=== PATIENT | female | born 1975 | race Caucasian/White ===

== ENCOUNTER 2018-07-23 11:58 | Observation (INO) ==
--- NOTE | 2018-07-23 08:45 | Anesthesia Evaluation PreOp ---
Date of Encounter: 07/23/18 Time of Encounter: 13:02 - Past History Planned Operation: Left Endo-CTR Cardiac History: Denies any Significant Hx Pulmonary History: Denies Any Significant HX, Snore [employer] History: Denies Any Significant HX Other Medical History: Denies Any Significant HX Anesthesia History: No Prior Anesthetic Complications, Past Anesthesia Test: Negative (07/23/2018) Alcohol Use: occasionally Drug use: none Medications and Allergies Ibuprofen 800 mg PO TID PRN #15 tablet 07/31/17 [Rx] Allergy/AdvReac Type Severity Reaction Status Date / Time rofecoxib [From Vioxx] AdvReac Swelling Verified 02/08/17 21:01 of Lip/Tongue/Throat Sulfa (Sulfonamide AdvReac Swelling Verified 07/23/18 12:43 Antibiotics) of Lip/Tongue/Throat - Meds/Allergy Pre-op Review Medications Reviewed: Yes Allergies Reviewed: Yes Beta Blockers on Current Med List: No Anesthesia Results - Labs Laboratory Tests 05/18/16 05/18/16 08:20 08:20 WBC 5.3 Hgb 13.1 Hct 39.7 Plt Count 286 Sodium 140 Potassium 3.2 L BUN 10 Creatinine 0.91 Anesthesia Exam O2 Sat Height 1.63 m Weight 88.904 kg O2 Sat by Pulse Oximetry 96 Vital Signs Temp Pulse Resp BP Pulse Ox 98.0 F 77 18 132/98 96 07/23/18 12:45 07/23/18 12:45 07/23/18 12:45 07/23/18 12:45 07/23/18 12:45 Height: 5'4'' Weight: 196 lbs NPO (# of Hours): 8 Pain Scale: 0 Pain Scale Used: Numeric (1 - 10) - HEENT Pupil (Motor): EOMI Mallampati: III Teeth: Normal Oral Opening: Greater than 3 - [employer] LOC: Oriented [employer] Motor: Normal RUE, Normal LUE, Normal RLE, Normal LLE, Normal Face [employer] Sensory: Normal: RUE, RLE, LLE, Face, Deficit: LUE (numbness/tingling) - Cardiac Rhythm: Regular Murmur: None - Pulmonary Breath Sounds: bilateral Clear Respiratory Effort: Symmetrical Anesthesia Assess/Plan ASA Score: 2 Level of consciousness: Cooperative, Oriented, Tranquil Anesthetic Plan: Regional Nerve Block (Clayton block) Monitoring Plan: Standard Monitors
[2018-07-23] MEDS ORDERED: Ringers Solution, Lactated 1,000 ML IVC SCH (12:45)
--- NOTE | 2018-07-23 12:47 | History & Physical Report ---
Date of Encounter: 07/23/18 Time of Encounter: 12:47 24 Hour HP Update - Instructions Instructions: If the History and Physical is less than 30 days old and was completed prior to A.M. admission and or procedure and has NOT been updated on calendar day of procedure please complete this update prior to performing procedure. - Update Patient reports changes in Medical Condition: No Changes in examination, assessment, or condition: No Changes in Medication: No Preop tests/diagnostics Reviewed: Yes Surgery Remains Indicated: Yes Consent for Planned Operative Procedure(s) Verified: Yes - Pre-Operative Checklist Preoperative Checklist Indicated: Yes Prophylactic Antibiotic Ordered: No Is VTE Prophylaxis Indicated?: Yes
--- NOTE | 2018-07-23 12:49 | Discharge Summary ---
Outpatient Proc Discharge Plan - Plan Additional Instructions: Remove dressings in 5 days, gently wash with soap and water and cover with a band-Aid Elevate hand. Do hand exercises Use ice for 1 hour 3 times a day for the next 2 days. No heavy lifting. No sports or gym activities follow-up in 2 weeks with Edwige Stewart PA-C Home Medications: Ibuprofen 800 mg PO TID PRN #15 tablet 07/31/17 [Rx]
[2018-07-23] MEDS ORDERED: *HR* Midazolam HCl 2 MG/2 ML VIAL ONE (12:53)
[2018-07-23] MEDS ORDERED: *HR* FentaNYL (PF) 100 MCG/2 ML VIAL ONE (12:53)
[2018-07-23] MEDS ORDERED: *HR* Propofol 200 MG/20 ML VIAL IVP ONE (12:54)
[2018-07-23] MEDS ORDERED: Lidocaine -MPF 0.5% 50 ML VIAL ONE (13:00)
[2018-07-23] MEDS ORDERED: Nitroglycerin 0.4 MG TAB.SUBL SL ONE (15:31)
[2018-07-23] MEDS: Nitroglycerin 0.4 MG TAB.SUBL SL PRN ×2 (15:36→15:42)
[2018-07-23] MEDS ORDERED: *HR* LORazepam 1 MG TABLET PO ONE (15:45)
[2018-07-23] MEDS ORDERED: *HR* Morphine 2 MG/ML SYRINGE IVP PRN (15:58)
--- NOTE | 2018-07-23 17:41 | Anesthesia Evaluation Post Op ---
Date of Encounter: 07/23/18 Time of Encounter: 17:46 - Vital Signs Vital Signs: Vital Signs/O2 Sat, Most Current Temp Pulse Resp BP Pulse Ox 97.9 F 76 16 121/86 94 07/23/18 14:19 07/23/18 17:00 07/23/18 17:00 07/23/18 17:00 07/23/18 17:00 - Lungs Lungs: Clear Ascult./Percussion - Airway Airway: Non-obstructed - Cardiovascular Regular Rate - Mental Status Mental Status: Alert & Oriented, Answers Appropriately - Pain Pain Scale: 0 (left wrist) Pain Scale used: Numeric (1 - 10) - Nausea Vomiting Nausea Vomiting: Not Present - Hydration Hydration: Tolerates oral liquids, Able to void Notes: Patient with c/o new onset chest fluttering/pressure in right sternal region shortly after having left endo-CTR under Clayton block with sedation. Stat ECG showed sinus rhythm, low QRS voltage in precordial leads, nonspecific T-wave abnormality. Vital signs were stable. Chest pressure became chest pain 10/10. Patient given sublingual NTG x 2 with no improvement in pain. Stat troponin ordered. Patient given ativan 0.5 mg PO and morphine 2 mg IV. Patient reported pain/pressure improved to 5/10. Patient reports family history on father's side as significant for cardiac disease with several members having myocardial infarcts in their 40's. Chest pressure still present. Troponin <0.03 ng/ml. Hospitalist contacted. Patient to be admitted and observed overnight. Dr Urbina informed. 07/23/18 17:18 - Discharge PostOp Status: Transfer Patient to floor
[2018-07-23] MEDS ORDERED: Nitroglycerin 0.4 MG TAB.SUBL SL PRN (21:39)
[2018-07-23] MEDS: Ondansetron 4 MG/2 ML VIAL IVP PRN (22:35)
[2018-07-23] MEDS ORDERED: Naloxone 0.4 MG/ML INJ IVP PRN (23:06)
[2018-07-23] MEDS ORDERED: 0.9 % Sodium Chloride 1,000 ML IVC ONE (23:09)
[2018-07-23] MEDS ORDERED: *HR* HYDROcodone/Acet 5/325 mg TABLET PO PRN (23:10)
[2018-07-23] MEDS ORDERED: Acetaminophen 325 MG TABLET PO PRN (23:10)
[2018-07-23] MEDS: *HR* OxyCODONE Immed Rel 5 MG TABLET PO PRN (23:45)
[2018-07-24 01:56] LABS: Hematocrit 33.9 % (35.3-44.9); Hemoglobin 11.3 g/dL (11.5-15.4); Mean Corpuscular HGB Conc 33.3 g/dL (31.6-35.5); Mean Corpuscular Hemoglobin 27.7 pg (28.0-33.3); Mean Corpuscular Volume 83.1 fL (83.0-100.0); Mean Platelet Volume 9.4 fL (9.4-12.4); Platelet Count 260 K/mcL (140-400); Red Blood Count 4.08 M/mcL (3.82-4.97); Red Cell Distribution Width 12.4 % (11.5-14.5)
[2018-07-24 02:16] LABS: Alanine Aminotransferase 62 Units/L (7-52); Albumin 3.5 g/dL (3.5-5.7); Albumin/Globulin Ratio 1.6 (1.1-2.2); Alkaline Phosphatase 81 Units/L (34-104); Aspartate Amino Transferase 65 Units/L (13-39); BUN/Creatinine Ratio 10 (6-26); Bilirubin,Total 0.7 mg/dL (0.3-1.0); Blood Urea Nitrogen 7 mg/dL (6-20); Calcium 8.2 mg/dL (8.6-10.3); Carbon Dioxide 27 mEq/L (23-29); Chloride 106 mEq/L (98-107); Globulin 2.2 g/dL (2.4-3.5); Glucose 106 mg/dL (70-105); Osmolality,Calculated 278 (280-300); Potassium 3.6 mEq/L (3.5-5.1); Sodium 135 mEq/L (136-145); Total Protein 5.7 g/dL (6.4-8.9); eGFR For Non-African Americans > 60 (> 60)
--- NOTE | 2018-07-24 02:31 | Internal Med History&Physical ---
Date of Encounter: 07/23/18 Time of Encounter: 22:20 Internal Medicine - H&P: HPI Chief complaint: Chest pressure Admitted From: Direct Admit Plans for Post Hospital Care: Home History of present illness: Ms. Carrion is a 42 year old female Patient presented to the hospital as a direct admit from outpatient anesthesia a fter she had undergone a left carpal tunnel release procedure earlier in the day. She says upon awakening she developed chest pressure approximately 10 minutes after waking up that was sudden onset and associated with diaphoresis. She denies shortness of breath and chest pain however she does have tenderness with palpation on the left side of her chest. She has chronic left shoulder pain as well which she has seen specialists for including recently that resulted in her having a carpal tunnel procedure done. She has never had symptoms like this before, denies cardiac history. Initial lab work demonstrates a CBC is within normal limits, and a CMP that is also within normal limits. Patient's initial troponins have been negative. D- dimer was not elevated at 289. Upon arrival to the hospital she stated that her chest pressure was about an 8 out of 10. She denies radiation but that it is difficult to assess due to her chronic left shoulder pain. She denied shortness of breath, diarrhea and constipation. She has had nausea and vomiting, the chest pressure but no abdominal pain. Her wrist and hand is still numb from the surgery, which she says the surgeon told her would be normal. She also has a long history of vomiting after meals for an unknown reason. She indicates that she has had extensive workup for this in the past but no conclusive cause has been found yet. is at bedside. Notable family history includes her mother that had colon cancer and father who has history of heart disease. Past Med Surg Social Fam HX - Past Medical History Medical history: non-contributory Additional medical history: heart murmur Psychiatric history: anxiety, depression - Past Surgical History Surgical History: cholecystectomy Additional surgical history: ltc - Social History Smoking Status: Never smoker Smokeless Tobacco Status: No Alcohol use: none Drug use: none - Family History Mother Living Status: Cause of : Cancer, mets Hx Family Cancer: Yes Hx Family GI Disorders: Yes Internal Medicine - H&P: Meds Ibuprofen 800 mg PO TID PRN #15 tablet 07/31/17 [Rx] Allergy/AdvReac Type Severity Reaction Status Date / Time rofecoxib [From Vioxx] AdvReac Swelling Verified 02/08/17 21:01 of Lip/Tongue/Throat Sulfa (Sulfonamide AdvReac Swelling Verified 07/23/18 12:43 Antibiotics) of Lip/Tongue/Throat All Systems PM: A 10-system review of systems was performed and is negative for pertinent findings except as documented above in the HPI. - Constitutional Vitals: Temp Pulse Resp BP Pulse Ox 97.8 F 71 17 124/88 95 07/24/18 00:12 07/24/18 00:12 07/24/18 00:12 07/24/18 00:12 07/24/18 00:12 General appearance: Present: cooperative, A&O X 3, pleasant, no acute distress, answers questions appropriately Exam: - - Head Head exam: Present: normal inspection - Eye Eye exam: Present: EOMI, normal appearance - Neck Neck exam general surgery: Absent: tenderness - Respiratory Respiratory exam: Present: chest wall tenderness, CTAB. Absent: rales, respiratory distress, rhonchi, wheezes Additional comments: Chest wall tenderness left anterior with palpation - Cardiovascular Cardiovascular exam: Present: RRR. Absent: diastolic murmur, systolic murmur - GI/Abdominal GI/Abdominal exam: Present: normal bowel sounds, soft. Absent: tenderness - Extremities Exam Extremities exam: Present: warm, radial pulses palpable and symmetrical. Absent: calf tenderness, pedal edema, tenderness - Neurological Exam Neurological exam: Present: no focal deficits, strengths equal and symetr throughout. Absent: motor sensory deficit, facial droop, speech deficit Additional comments: Numbness of left hand. Left hand in a wrap status post carpal tunnel release surgery - Skin Skin exam: Present: dry, normal color, warm Internal Med - H&P Results - Labs CBC & Chem 7: 07/24/18 01:45 07/24/18 01:45 Labs: Short CBC 07/24/18 Range/Units 01:45 WBC 4.8 (4.3-11.1) K/mcL Hgb 11.3 L (11.5-15.4) g/dL Hct 33.9 L (35.3-44.9) % Plt Count 260 (140-400) K/mcL BMP 07/24/18 01:45 Sodium 135 L Potassium 3.6 Chloride 106 Carbon Dioxide 27 BUN 7 Creatinine 0.70 Glucose 106 H Calcium 8.2 L Cardiac Enzymes 07/23/18 07/23/18 Range/Units 16:01 22:53 Troponin I < 0.03 < 0.03 (< 0.04) ng/mL Liver Function 07/24/18 Range/Units 01:45 Total Bilirubin 0.7 (0.3-1.0) mg/dL AST 65 H (13-39) Units/L ALT 62 H (7-52) Units/L Alkaline Phosphatase 81 (34-104) Units/L Albumin 3.5 (3.5-5.7) g/dL - Assessment and plan (1) History of carpal tunnel surgery of left wrist Current Visit: Yes Status: Acute Assessment and plan: Performed earlier in the day 07/23/2018. Management as per orthopedic surgery (2) Chest pressure Current Visit: Yes Status: Acute Assessment and plan: Initial troponins negative, EKG shows no ischemic changes. D-dimer not elevated. Now resolved with oxycodone. Could be related to patient's chronic shoulder pain. No associated shortness of breath but did have pain with palpation. Obtain chest x-ray in the morning to rule out bony abnormality Continue to trend troponins Pain management as needed (3) Nausea and vomiting Current Visit: Yes Status: Acute Assessment and plan: Improved with when necessary Zofran. Patient has apparently long history of GI disorders and has had nausea and vomiting for many years. Continue when necessary Zofran Qualifiers: Vomiting type: unspecified Vomiting Intractability: non-intractable Qu alified Code(s): R11.2 - Nausea with vomiting, unspecified (4) DVT prophylaxis Current Visit: Yes Status: Acute Assessment and plan: SCDs - Time Spent With Patient Total time spent is greater than 50% in coordination of care (as documented) at patient's floor/unit and/or counseling patient: Greater than 35 minutes
[2018-07-24] MEDS: *HR* OxyCODONE Immed Rel 5 MG TABLET PO PRN ×2 (09:47→17:08)
[2018-07-24] MEDS: Ondansetron 4 MG/2 ML VIAL IVP PRN (11:46)
--- NOTE | 2018-07-24 15:49 | Internal Med Progress Note ---
Hospitalist Progress Note - Encounter Date of Encounter: 07/24/18 Time of Encounter: 15:46 - Subjective Interval History: I have seen and evaluated the patient at bedside. Patient reports that her chest discomfort have resolved but she reports feeling nauseated and has had 2 episodes of non-bilious, non-bloody vomiting. denies headache. - Exam Vitals: Temp Pulse Resp BP Pulse Ox 98.6 F 64 16 96/60 96 07/24/18 11:04 07/24/18 11:04 07/24/18 11:04 07/24/18 11:04 07/24/18 11:04 Exam: Vitals: Reviewed General: Alert and oriented x4. In mild distress due to nausea and vomiting Skin: Normal color, no rash, no lesions. HEENT: EOM, pupils equal, round and reactive. Cardiovascular: RRR, normal S1 & S2, no rubs, murmurs or gallops. No JVD. Pulse regular. Lungs: CTA b/l, no wheezes or crackles. Abdomen: Obese, Soft, non-tender, no rigidity. Extremities: mild edema of the right hand. Neurological: Normal cognition and motor skills. Rest of the physical exam is non contributory - Assessment and Plan (1) Nausea and vomiting Current Visit: Yes Status: Acute Assessment and Plan: patient complaining of feeling nauseous and having multiple episodes of vomiting. Plan Ondansetron 4mg/IV Q4HR scheduled. Will add PPI clear liquid diet D5NS@75mls/hr (2) Chest pressure Current Visit: Yes Status: Resolved (3) History of carpal tunnel surgery of left wrist Current Visit: Yes Status: Acute Assessment and Plan: s/p carpal tunnel release surgery. continue pain control per Ortho re commedations. DVT Prophylaxis: Started on heparin subcutaneous. - Summary of Assessment and Plan Summary of Assessment and Plan: Patient to remain in the hospital due to nausea and vomiting. potential discharge tomorrow morning. - Time Spent with Patient Total time spent is greater than 50% in coordination of care (as documented) at patient's floor/unit and/or counseling patient: Greater than 35 minutes (45) Plan of Care Discussed with: patient (and her at bedside.) Internal Medicine: Result - Labs CBC & Chem 7: 07/24/18 01:45 07/24/18 01:45 Labs: Short CBC 07/24/18 Range/Units 01:45 WBC 4.8 (4.3-11.1) K/mcL Hgb 11.3 L (11.5-15.4) g/dL Hct 33.9 L (35.3-44.9) % Plt Count 260 (140-400) K/mcL BMP 07/24/18 01:45 Sodium 135 L Potassium 3.6 Chloride 106 Carbon Dioxide 27 BUN 7 Creatinine 0.70 Glucose 106 H Calcium 8.2 L Cardiac Enzymes 07/23/18 07/23/18 Range/Units 16:01 22:53 Troponin I < 0.03 < 0.03 (< 0.04) ng/mL Liver Function 07/24/18 Range/Units 01:45 Total Bilirubin 0.7 (0.3-1.0) mg/dL AST 65 H (13-39) Units/L ALT 62 H (7-52) Units/L Alkaline Phosphatase 81 (34-104) Units/L Albumin 3.5 (3.5-5.7) g/dL - ABG Interpretation ABG results: PT/INR, D-dimer D-Dimer 289 ng/mLFEU (0-500) 07/24/18 01:45 - Impressions Impressions Chest X-Ray 07/24/18 07:00 IMPRESSION: No significant findings in the chest. D/ / Leif Chaparro MD / Leif Chaparro MD Interpreting Provider: Leif Chaparro MD Consult Discharge Plan - Plan Additional Instructions: Remove dressings in 5 days, gently wash with soap and water and cover with a band-Aid Elevate hand. Do hand exercises Use ice for 1 hour 3 times a day for the next 2 days. No heavy lifting. No sports or gym activities follow-up SundayAug 05 at 130PM with Edwige Stewart PA-C Home Medication List * You have been given a list of your current medications. If you have changes in your medications, update your list. * Provide a list of current medications to your primary care physician. * Carry a copy of your current medications with you in case of an emergency. Referrals: Mo,Matthew E, DO [Primary Care Provider] - (1) Nausea and vomiting Qualifiers: Vomiting type: unspecified Vomiting Intractability: non-intractable Qualified Code(s): R11.2 - Nausea with vomiting, unspecified
[2018-07-24] MEDS: Ondansetron 4 MG/2 ML VIAL IVP SCH ×2 (17:08→20:17)
[2018-07-24] MEDS: D5% in 0.9% NACL 1,000 ML IVC SCH (17:08)
[2018-07-24] MEDS: *HR* Heparin 5,000 UNIT/ML VIAL SQ SCH ×2 (17:09→20:16)
[2018-07-24] MEDS: Pantoprazole 40 MG VIAL IVP SCH (17:19)
--- NOTE | 2018-07-24 18:20 | Operative Note ---
Date of procedure: 07/23/18 Pre-op diagnosis: Left carpal tunnel syndrome Post-op diagnosis: same Procedure: Left endoscopic carpal tunnel release Anesthesia: MAC, regional Surgeon: Wilber Urbina Was there an acquisitions assistant present: No Estimated blood loss (cc): 0 Tourniquet Time (Minutes): 20 Specimen: 0 Condition: stable Disposition: same day Procedure in Detail: The patient was brought to the operating room and placed on the OR table in supine position with the affected upper extremity on a hand table. The patient received IV sedation, a tourniquet was placed on the left arm close to the axilla and a Betances block was administered by the anesthesia department in standard technique. The upper extremity was then prepped and draped in usual sterile fashion. A timeout was performed. A 1 cm transverse incision was made between the palmaris longus and flexor carpi ulnaris tendons, approximately 1 cm proximal to the distal wrist flexion crease. The antebrachial fascia was identified and split transversely, the proximal end was released. This synovial elevator was introduced scraping the undersurface of the transverse carpal ligament. The first dilator was introduced, followed by the second larger dilator. Next the Arthrex Centerline endoscope was then introduced. The transverse fibers were clearly seen, and the blade was deployed incising the ligament. The scope was then introduced slightly deeper making sure to get the most distal fibers. The remaining antebrachial fascia was released with tenotomies. The wound was irrigated with normal saline, and the subcutaneous tissue was then cauterized with the bipolar. The skin was closed with Dermabond, once dry the patient was injected with 6 mL of 0.5% Marcaine. Sterile dressings were applied, the Clayton block was then let down and the patient was taken to the recovery room in stable condition.
[2018-07-25] MEDS: Ondansetron 4 MG/2 ML VIAL IVP SCH ×2 (03:44→08:46)
[2018-07-25] MEDS: *HR* Heparin 5,000 UNIT/ML VIAL SQ SCH (05:18)
[2018-07-25] MEDS: D5% in 0.9% NACL 1,000 ML IVC SCH (06:38)
[2018-07-25 07:51] VITALS: BP 105/65
[2018-07-25] MEDS: Pantoprazole 40 MG VIAL IVP SCH (08:50)
[2018-07-25] MEDS: *HR* OxyCODONE Immed Rel 5 MG TABLET PO PRN (08:50)
--- NOTE | 2018-07-25 09:02 | Discharge Summary ---
- NOTES TO OUTPATIENT PROVIDER Notes to Outpatient Provider: Follow-up with orthopedic team within a week of hospital discharge. Orders not resulted at time of discharge: Pending orders 07/23/18 15:28 EKG [ECG 12 lead ECG] [ECG] Stat Date of Encounter: 07/25/18 Time of Encounter: 09:00 - Discharge Diagnosis (1) Nausea and vomiting Priority: Primary Status: Resolved Qualifiers: Vomiting type: unspecified Vomiting Intractability: non-intractable Qualified Code(s): R11.2 - Nausea with vomiting, unspecified (2) Chest pressure Priority: Secondary Status: Resolved (3) History of carpal tunnel surgery of left wrist Priority: Secondary Status: Acute Hospital course: Ms. Carrion is a 42 year old female no significant past medical history. Patient admitted following a left carpal tunnel release. Point awake surgery patient developed chest pressure lasting approximately 30 minutes associated with diaphoresis. Patient admitted to the hospital for observation. Serial troponin negative, no EKG changes, d-dimer within normal. On the second day of hospitalization patient developed nausea and vomiting, which resolved with antiemetics and PPI. Patient acute symptoms have resolved and patient is clinically stable to be discharged. Recommended to follow-up with orthopedics as scheduled. - Time Spent with Patient Total time spent providing and/or coordinating discharge services: Greater than 30 minutes (38) - Discharge Medications Home Medications: Acetaminophen w/Cod 300-30 mg [Tylenol w/Codeine #3] 1 tab PO Q6H PRN 07/24/18 [History] Allergies/Adverse Reactions: Allergy/AdvReac Type Severity Reaction Status Date / Time rofecoxib [From Vioxx] AdvReac Swelling Verified 07/24/18 13:54 of Lip/Tongue/Throat Sulfa (Sulfonamide AdvReac Swelling Verified 07/24/18 13:54 Antibiotics) of Lip/Tongue/Throat Date of admission: 07/23/18 17:45 Primary care physician: Matthew Hassan, - Constitutional Vitals: Temp Pulse Resp BP Pulse Ox 98.1 F 64 14 105/65 95 07/25/18 07:46 07/25/18 07:46 07/25/18 07:46 07/25/18 07:46 07/25/18 07:46 General appearance: Present: cooperative, A&O X 3, pleasant, no acute distress, answers questions appropriately Exam: Vitals: Reviewed General: Alert and oriented x4. In mild distress due to nausea and vomiting Skin: Normal color, no rash, no lesions. Cardiovascular: RRR, normal S1 & S2, no rubs, murmurs or gallops. Lungs: CTA b/l, no wheezes or crackles. Abdomen: Obese, Soft, non-tender, no rigidity. Extremities: mild edema of the right hand, improving. Neurological: Normal cognition. Rest of the physical exam is non contributory - Patient Status Disposition: Home, Self-Care Condition: Good Functional capacity at discharge: independent ambulation Overall status at discharge: patient is back to baseline - Discharge Instructions Follow Up With: Matthew Hassan DO [Primary Care Provider] - Additional Instructions: Remove dressings in 5 days, gently wash with soap and water and cover with a band-Aid Elevate hand. Do hand exercises Use ice for 1 hour 3 times a day for the next 2 days. No heavy lifting. No sports or gym activities follow-up SundayAug 05 at 130PM with Edwige Stewart PA-C Home Medication List * You have been given a list of your current medications. If you have changes in your medications, update your list. * Provide a list of current medications to your primary care physician. * Carry a copy of your current medications with you in case of an emergency. - Diet and Activity Activity: resume usual activities as tolerated Diet: advance to your usual diet
--- NOTE | 2018-07-26 11:18 | Electrocardiograph Report ---
[facility] Test Date: 2018-07-23 Pat Name: Estrella Carrion Department: 103 Room: 2S8 Gender: F Shipyard Helper: : 1975 Requested By: Bubba Cifuentes Order Number: [id number] Reading MD: Luís Jacobo Measurements Intervals [place] Rate: 69 P: 51 [place]: 124 QRS: 23 QRSD: 86 T: 37 QT: 408 QTc: 427 Interpretive Statements SINUS RHYTHM NONSPECIFIC T-WAVE ABNORMALITY Electronically Signed On 07-26-2018 11:17:09 EST by Luís Jacobo
--- NOTE | 2018-07-27 12:54 | Electrocardiograph Report ---
[address] [address] Test Date: 2018-07-23 Pat Name: Estrella Carrion Department: 1501 Room: [facility] Gender: F Health And Safety Manager: : 1975 Requested By: David Jean Order Number: [id number] Reading MD: Geovanna Dow Measurements Intervals [place] Rate: 67 P: 43 [place]: 131 QRS: 17 QRSD: 88 T: 26 QT: 398 QTc: 413 Interpretive Statements SINUS RHYTHM LOW QRS VOLTAGE IN PRECORDIAL LEADS NONSPECIFIC T-WAVE ABNORMALITY Electronically Signed On 07-27-2018 12:52:36 EST by Geovanna Dow
== END 2018-07-25 10:25 | disposition home or self-care (01) ==
LOC: SAMDAYPAV 11:58 → 2SOUTHHOLD 11:58 → SUATTDRO 17:45 → 2SOUTHHOLD 17:45 → UNDODISOB 19:20
PROVIDERS: ADMIT Student in an Organized Health Care Education/Training Program; ATTEND Internal Medicine